=== PATIENT | female | born 1970 ===

== ENCOUNTER 2020-09-16 18:09 | Emergency (ER) | payer OTHER ==
[~2020-09-16] VITALS: Ht 175.3 cm; Wt 108.4 kg
[2020-09-16 18:19] VITALS: BP 122/62; Ht 175.3 cm; Wt 108.4 kg
== END 2020-09-16 19:19 | disposition home or self-care (01) ==
LOC: ED 18:09
DX: I82.4Z2 Acute embolism and thrombosis of unspecified deep veins of left distal lower extremity (principal); E78.00 Pure hypercholesterolemia, unspecified